=== PATIENT | female | born 1955 | race Caucasian/White ===

== ENCOUNTER 2024-05-12 09:43 | Outpatient (CLI) | payer MEDICARE | END 2024-05-12 09:44 | disposition home or self-care (01) | LOC: CT 09:43 | PROVIDERS: ATTEND Nurse Practitioner Family | DX: R91.8 Other nonspecific abnormal finding of lung field (principal) | CPT/HCPCS: 36415; 71260; 82565 ==

== ENCOUNTER 2025-01-15 12:16 | Outpatient (CLI) | payer MEDICARE ==
[2025-01-15] MEDS ORDERED: Iopamidol-370 76% 500 ML MDV (1 ML CHARGE) ONE (12:54)
== END 2025-01-15 12:17 | disposition home or self-care (01) ==
LOC: CT 12:16
PROVIDERS: ATTEND Nurse Practitioner Family
DX: R91.8 Other nonspecific abnormal finding of lung field (principal); Z90.89 Acquired absence of other organs
CPT/HCPCS: 70491; 71260; Q9967